=== PATIENT | female | born 1950 | race African-American/Black ===

== ENCOUNTER 2017-03-04 05:35 | Emergency (ER) | payer OTHER ==
[~2017-03-04] VITALS: Ht 160 cm; Wt 79.4 kg
--- NOTE | ~2017-03-04 | EKG ---
[place] [address] [address] [place] [employer] [place] [address] ELECTROCARDIOGRAM REPORT Name: CHANDRIKASTELLABenjamin Room #: REG TERRANCE Blake#: [id number] Admission: 03/04/17 Attend Phys: Discharge: Date of : 54 Report #: [id number] THIS REPORT FOR: //name// [facility] ED Test Date: 2017-03-04 Test Time: 05:48:16 Pat Name: MICHAEL COBOS Department: Room: Gender: F [employer]: [id number] : 1950 Requested By: Tina Betts Order Number: [id number] MD: Mike Rodriguez Measurements Intervals [place] Rate: 65 P: 58 SD: 187 QRS: 9 QRSD: 95 T: 56 QT: 435 QTc: 453 Interpretive Statements Sinus rhythm No significant abnormality No previous ECG available for comparison Electronically Signed On 03-04-2017 7:30:07 CDT by Mike Rodriguez [email or web address] <ELECTRONICALLY SIGNED> By: Mike Rodriguez MD, [facility] 03/04/17 0730 0548 0548 Mike Rodriguez MD, FACC /EPI
[~2017-03-04 05:35] MED LIST: ATENOLOL 50MG T50 M1 PO
[2017-03-04 05:52] LABS: BASOPHILS 0.4 % (0.0-2.0); EOSINOPHILS 0.8 % (0.0-3.0); LYMPHOCYTES 24.5 % (24.0-44.0); MCH 26.3 pg (26.0-34.0); MCHC 32.8 g/dL (28.0-37.0); MCV 80.1 fL (80.0-100.0); MONOCYTES 4.8 % (1.0-8.0); PLATELET COUNT 165 thou/uL (150-400); POLYS 69.5 % (36.0-66.0); RBC 1.92 mil/uL (4.20-5.00); RDW 17.5 % (10.5-14.5); WBC 8.7 thou/uL (4.0-11.0)
[2017-03-04 05:59] LABS: MANUAL DIFF NO
[2017-03-04 06:00] LABS: HEMATOCRIT 15.4 % (37.0-47.0)
[2017-03-04 06:01] LABS: ANION GAP 9 mmol/L (7-16); BUN 10 mg/dL (7-18); CALCIUM 8.2 mg/dL (8.5-10.1); CHLORIDE 104 mmol/L (98-107); CO2 25 mmol/L (21-32); CREATININE 0.9 mg/dL (0.6-1.0); GLUCOSE 199 mg/dL (74-106); POTASSIUM 3.6 mmol/L (3.5-5.1); SODIUM 138 mmol/L (136-145)
[2017-03-04 06:08] LABS: ALBUMIN 2.8 g/dL (3.4-5.0); ALKALINE PHOSPHATASE 66 U/L (46-116); DIRECT BILIRUBIN < 0.1 mg/dL (<0.1-0.3); SGOT 19 U/L (15-37); SGPT 19 U/L (30-65); TOTAL BILIRUBIN 0.2 mg/dL (<0.1-1.0); TROPONIN-I < 0.04 ng/mL (<0.04-0.07)
== END 2017-03-04 09:50 | disposition short-term general hospital (02) ==
LOC: ER 05:35
PROVIDERS: Emergency Medicine
DX: N93.8 Other specified abnormal uterine and vaginal bleeding (principal); N85.8 Other specified noninflammatory disorders of uterus; D64.9 Anemia, unspecified; I10 Essential (primary) hypertension